=== PATIENT | male | born 1985 | race Caucasian/White ===

== ENCOUNTER 2016-10-27 17:34 | Emergency (ER) | payer BC, MEDICAID, OTHER ==
[~2016-10-27] VITALS: Ht 172.7 cm; Wt 95.0 kg
--- NOTE | 2016-10-27 17:41 | ERA ---
ER Documentation Chief Complaint Date/Time DATE: 10/27/16 TIME: 17:41 Chief Complaint testicular pain HPI The patient is a 31-year-old male, presenting to the ER because of bilateral testicular pain. He complains of left testicular pain and swollen for 2 days. He had similar symptoms 5 months ago and was treated with antibiotic for epididymitis. He had recurrent symptoms for 2 days. He complained of right testicular pain at 8:00 this morning. The pain is 8/10, worse with movement he denies fever, chills, neck pain, chest pain, dyspnea, abdominal pain, vomiting. He complains of dysuria, denies diarrhea, constipation. He smokes and drinks socially Past medical history: None Past surgical history: Appendectomy ROS All systems reviewed and are negative except as per history of present illness. Medications Home Meds Active Scripts Hydrocodone/Acetaminophen ([place] 5-325 Tablet) 1 Each Tablet, 1 TAB PO Q6H Y for PAIN, #15 TAB Prov:COLE DIAZ MD 10/27/16 Ciprofloxacin Hcl* (Ciprofloxacin Hcl*) 500 Mg Tablet, 500 MG PO BID for 10 Days , TAB Prov:COLE DIAZ MD 10/27/16 Allergies Allergies: Coded Allergies: No Known Allergy (Unverified , 10/27/16) Physical Exam Vitals Vital Signs Date Time Temp Pulse Resp B/P Pulse Ox O2 Delivery O2 Flow Rate FiO2 10/27/16 18:02 97.2 105 18 140/83 98 Physical Exam Const: No acute distress. Head: Atraumatic. Eyes: Normal Conjunctiva. ENT: Normal External Ears, Nose and Mouth. Neck: Full range of motion. No meningismus. Resp: Clear to auscultation bilaterally. Cardio: Regular rate and rhythm, no murmurs. Abd: Soft, non distended, normal bowel sounds, non tender. Skin: No petechiae or rashes. Back: No midline or flank tenderness. Ext: No cyanosis, or edema. Neur: Awake and alert. No focal deficit Psych: Normal Mood and Affect. Genitourinary: Bilateral testicular edematous and tender, more the right than the left. Uncircumcised male. No inguinal lymphadenopathy Results 24 hrs Laboratory Tests Test 10/27/16 19:17 Bedside Urine Blood 2+ Bedside Urine Glucose (UA) Negative Bedside Urine Ketones (LAB) Negative Bedside Urine Leukocyte Esterase (L 2+ Bedside Urine Nitrite (LAB) Negative Bedside Urine Protein (LAB) 2+ Bedside Urine pH (LAB) 7.0 Current Medications Medications (Trade) Dose Ordered Sig/Kindra Route PRN Reason Start Time Stop Time Status Last Admin Dose Admin Morphine Sulfate (morphine) 4 mg ONCE STAT IV 10/27/16 18:04 10/27/16 18:07 DC 10/27/16 18:12 Ondansetron HCl (Zofran Inj) 4 mg ONCE STAT IV 10/27/16 18:04 10/27/16 18:07 DC 10/27/16 18:12 Procedures/[place] [id number] Radiology Main Line: [phone] DIAGNOSTIC IMAGING REPORT Patient: FAWAD ROONEY : 1985 Age: 31 Sex: M MR #: [id number] DOS: 10/27/16 0000 Ordering MD: COLE DIAZ MD Location: E/R Room/Bed: PROCEDURE: Scrotal ultrasound CLINICAL INDICATION: Scrotal pain. TECHNIQUE: Scrotal ultrasound was performed with sagittal and transverse views. Pardo scale and color imaging was performed. Images were reviewed on high resolution PACS monitors. COMPARISON: None available FINDINGS: The right testicle measures 4.6 x 2.5 x 5 cm . There is normal size and echogenicity and morphology of the right testicle with normal blood flow. The right epididymis is normal. No hydrocele is seen. There is a small varicocele. The left testicle measures 4.2 x 2.6 x 3.9 cm. There is normal size and echogenicity and morphology of the left testicle with normal blood flow. The left epididymis is normal. There is a small hydrocele is seen. There is no evidence for a varicocele.. IMPRESSION: 1. Normal examination of the testicles and epididymi. 2. Right varicocele. 3. Small left hydrocele. RPTAT: HMVK .Cole Doll MD, Date Time Electronically viewed and signed by .Cole Doll MD, on 10/27/2016 18:53 .K/ CC: COLE DIAZ MD MEDICAL MAKING DECISION: The patient is a 31-year-old male, presenting with acute cystitis, acute right varicocele, acute left hydrocele. He was treated with morphine 4 mg IV for pain, Zofran 4 mg IV for nausea with good response. The differential diagnoses considered include but are not limited to epididymitis, testicular torsion, pyelonephritis Departure Diagnosis: Primary Impression: UTI (urinary tract infection) Additional Impressions: Hydrocele Varicocele Condition: Good Comments He was discharged with Cipro and [place] and referred to on-call urologist Dr. Rowland in 1-2 days, sooner if needed and return if any concern COLE DIAZ MD Oct 27, 2016 17:41
[2016-10-27 18:02] VITALS: Ht 172.7 cm; Wt 95.0 kg
[2016-10-27] MEDS ORDERED: ONDANSETRON 4 MG INJ IV STA (18:04)
[2016-10-27] MEDS ORDERED: morphine 4 MG/ML VIAL IV STA (18:04)
--- NOTE | 2016-10-27 18:53 | RADRPT ---
PROCEDURE: Scrotal ultrasound CLINICAL INDICATION: Scrotal pain. TECHNIQUE: Scrotal ultrasound was performed with sagittal and transverse views. Pardo scale and co allan imaging was performed. Images were reviewed on high resolution PACS monitors. COMPARISON: None available FINDINGS: The right testicle measures 4.6 x 2.5 x 5 cm . There is normal size and echogenicity and morphology of the right testicle with normal blood flow. The right epididymis is normal. No hydrocele is seen. There is a small varicocele. The left testicle measures 4.2 x 2.6 x 3.9 cm. There is normal size and echogenicity and morphology of the left testicle with normal blood flow. The left epididymis is normal. There is a small hydroc mainor is seen. There is no evidence for a varicocele.. IMPRESSION: 1. Normal examination of the testicles and epididymi. 2. Right varicocele. 3. Small left hydrocele. RPTAT: HMVK .Cole Doll MD, Date Time Electronically viewed and signed by .Cole Doll MD, MD on 10/27/2016 18:53 .K/
[2016-10-27 19:18] LABS: URINE BLOOD (Dip) POC 2+ (NEGATIVE)
[2016-10-27] MEDS ORDERED: HYDR-906 PO (19:33)
[2016-10-27] MEDS ORDERED: CIPR500T4 PO (19:33)
[2016-10-27 20:01] VITALS: BP 137/77; PULSE 92; RESP 18; TEMP 98.1
== END 2016-10-27 20:03 | disposition home or self-care (01) ==
LOC: E/R 17:34
DX: N39.0 Urinary tract infection, site not specified (principal); N43.3 Hydrocele, unspecified; I86.1 Scrotal varices; N50.811 Right testicular pain
CPT/HCPCS: 76870; 81003; 96374; 96375; J2270; J2405; Z7502

== ENCOUNTER 2016-10-31 02:39 | Emergency (ER) | payer MEDICAID ==
[~2016-10-31] VITALS: Ht 172.7 cm; Wt 100.0 kg
[~2016-10-31 02:39] MED LIST: CIPR500T4 PO; HYDR-906 PO
[2016-10-31 02:47] VITALS: Ht 172.7 cm; Wt 100.0 kg
[2016-10-31] MEDS ORDERED: SOD CHLORIDE 0.9% 1,000 ML IV STA (03:14)
[2016-10-31] MEDS ORDERED: KETOROLAC 30 MG INJ IV STA (03:14)
--- NOTE | 2016-10-31 03:19 | ERD ---
ER Documentation Chief Complaint Date/Time DATE: 10/31/16 TIME: 03:17 Chief Complaint worsening genital pain HPI 28-year-old male presents to emergency department for complaint of right testicular redness and swelling worse in the last 2 days. Patient is complaining of dysuria, burning pain, 8/10 scale, accompanied with pus coming from the urine and hematuria. Patient was seen here in emergency department 2 days ago, was given ciprofloxacin, Robson for pain, had an ultrasound done, urine tests done, was told to acute cystitis. Patient continues to have pain and it has gotten worse. ROS All systems reviewed and are negative except as per history of present illness. Medications Home Meds Active Scripts Doxycycline Hyclate* (Doxycycline Hyclate*) 100 Mg Tablet.dr, 100 MG PO BID for 14 Days, TAB Prov:FAUZIA ROB NP 10/31/16 Phenazopyridine Hcl* (Pyridium*) 200 Mg Tab, 200 MG PO TID Y for URINARY PAIN, # 6 TAB Prov:FAUZIA ROB NP 10/31/16 Hydrocodone/Acetaminophen ([place]son 5-325 Tablet) 1 Each Tablet, 1 TAB PO Q6H Y for PAIN, #15 TAB Prov:ROGER DIAZ MD 10/27/16 Ciprofloxacin Hcl* (Ciprofloxacin Hcl*) 500 Mg Tablet, 500 MG PO BID for 10 Days , TAB Prov:ROGER DIAZ MD 10/27/16 Allergies Allergies: Coded Allergies: No Known Allergy (Unverified , 10/27/16) PMhx/Soc Medical and Surgical Hx: pt denies Medical Hx History of Surgery: Yes (appendectomy) Hx Alcohol Use: No Hx Substance Use: No Hx Tobacco Use: No FmHx Family History: No coronary disease, No diabetes, No other Physical Exam Vitals Vital Signs Date Time Temp Pulse Resp B/P Pulse Ox O2 Delivery O2 Flow Rate FiO2 10/31/16 03:27 98.5 18 159/97 99 10/31/16 02:47 98.5 103 18 159/97 99 Physical Exam GENERAL: The patient is well developed and appropriate for usual state of health, in no apparent distress. CHEST: Clear to auscultation bilaterally. There are no rales, wheezes or rhonchi. HEART: Regular rate and rhythm. No murmurs, clicks, rubs or gallops. No S3 or S4. ABDOMEN: Soft, nontender and nondistended. Good bowel sounds. No rebound or guarding. No gross peritonitis. No gross organomegaly or masses. No Olvera sign or McBurney point tenderness. BACK: No midline or flank tenderness. EXTREMITIES: Equal pulses bilaterally. There is no peripheral clubbing, cyanosis or edema. No focal swelling or erythema. Full range of motion. Grossly neurovascularly intact. NEURO: Alert and oriented. Cranial nerves 2-12 intact. Motor strength in all 4 extremities with 5/5 strength. Sensation grossly intact. Normal speech and gait. SKIN: There is no apparent rash or petechia. The skin is warm and dry. HEMATOLOGIC AND LYMPHATIC: There is no evidence of excessive bruising or lymphedema. No gross cervical, axillary, or inguinal lymphadenopathy. : Noted right scrotal area to be red and swollen, tender on palpation, enlarged. No visualized penile discharge. Left scrotum is normal. Result Diagram: 10/31/16 0324 10/31/16 0324 Results 24 hrs Laboratory Tests Test 10/31/16 03:24 10/31/16 03:27 Alanine Aminotransferase (ALT/SGPT) 133IU/L Albumin 4.3g/dl Albumin/Globulin Ratio 1.02 Alkaline Phosphatase 125IU/L Anion Gap 19 Aspartate Amino Transf (AST/SGOT) 67IU/L Basophils # 0.010^3/ul Basophils % 0.5% Blood Morphology Comment Blood Urea Nitrogen 17mg/dl Calcium Level 9.5mg/dl Carbon Dioxide Level 29mmol/L Chloride Level 101mmol/L Creatinine 0.80mg/dl Direct Bilirubin 0.00mg/dl Eosinophils # 0.310^3/ul Eosinophils % 3.4% Globulin 4.20g/dl Glucose Level 73mg/dl Hematocrit 43.6% Hemoglobin 14.8g/dl Indirect Bilirubin 0.1mg/dl Lactic Acid Level 1.3mmol/L Lipase 47U/L Lymphocytes # 2.610^3/ul Lymphocytes % 26.0% Mean Corpuscular Hemoglobin 30.1pg Mean Corpuscular Hemoglobin Concent 34.0g/dl Mean Corpuscular Volume 88.6fl Mean Platelet Volume 7.3fl Monocytes # 0.910^3/ul Monocytes % 8.6% Neutrophils # 6.210^3/ul Neutrophils % 61.5% Nucleated Red Blood Cells # 0.010^3/ul Nucleated Red Blood Cells % 0.0/100WBC Platelet Count 36817^3/UL Potassium Level 4.2mmol/L Red Blood Count 4.9210^6/ul Red Cell Distribution Width 13.0% Sodium Level 145mmol/L Total Bilirubin 0.1mg/dl Total Protein 8.5g/dl White Blood Count 10.110^3/ul Urine Bacteria FEW Urine Bilirubin NEGATIVE Urine Clarity HAZY Urine Color LT. YELLOW Urine Glucose NEGATIVE% Urine Hemoglobin 2+ Urine Ketones NEGATIVE Urine Leukocyte Esterase 2+ Urine Microscopic RBC 5-10/HPF Urine Microscopic WBC 25-50/HPF Urine Nitrite NEGATIVE Urine Specific [place] 1.020 Urine Squamous Epithelial Cells FEW Urine Total Protein NEGATIVE Urine Urobilinogen 0.2 E.U./dL Urine pH 7.0 Current Medications Medications (Trade) Dose Ordered Sig/Kindra Route PRN Reason Start Time Stop Time Status Last Admin Dose Admin Sodium Chloride (NS) 1,000 ml @ 1,000 mls/hr Q1H STAT IV 10/31/16 03:14 10/31/16 04:13 DC 10/31/16 03:46 Ketorolac Tromethamine 30 mg 30 mg ONCE STAT IV 10/31/16 03:14 10/31/16 03:17 DC 10/31/16 03:46 Ceftriaxone Sodium (Rocephin) 50 ml @ 100 mls/hr ONCE ONCE IVPB 10/31/16 04:30 10/31/16 04:59 Patient was given medication for pain here in emergency department, after treatment, patient verbalized feeling much better. Patient's pain is improved.Normal saline IV bolus was given here in emergency department for rehydration, patient tolerated IV fluids. PROCEDURE: Testicle ultrasound with power Doppler. CLINICAL INDICATION: Scrotal pain. TECHNIQUE: Multiple sonographic images of the scrotal region were obtained utilizing a linear array transducer with grayscale and color-flow and a Doppler imaging. The images were reviewed on a high-resolution PACS workstation. COMPARISON: 10/27/2016. FINDINGS: Bilateral testicles are normal in size, contour, echogenicity and echotexture. The right testicle measures 5.2 x 3.2 x 4.3 cm and the left testicle measures 5.1 x 2.9 x 3.4 cm. Testicle arterial and venous flow are normal. There is no evidence of testicular mass or torsion. There is no evidence of orchitis. Bilateral epididymi are normal in size, contour, position and echogenicity. The right epididymis measures 20.9 x 8.9 mm the left epididymis measures 16.1 x 11.1 mm. There is no evidence of epididymitis. There is mild right-sided hydrocele. There is no varicocele. Scrotal soft tissues are unremarkable. IMPRESSION: Mild right-sided hydrocele. Otherwise unremarkable testicular ultrasound. .Robbin Justin MD, Date Time Electronically viewed and signed by .Robbin Justin MD, MD on 10/31/2016 04:11 .T/ CC: FAUZIA ROB NP Procedures/MDM Medical decision making: Patient symptoms is likely consistent with epididymoorchitis, as per physical examination. Ultrasound does not show any scrotal abscess. Patient's urine shows leukocytes, urine GC chlamydia was sent, also urine culture was sent. As per discussion with my attending physician, Dr. Mejia, he recommended to give patient IV Rocephin here in emergency department, to send patient home with doxycycline for 14 days, patient was advised to stay but he is taking ciprofloxacin to cover Escherichia coli. No symptoms of any sepsis at this time, lactic acid is negative, no leukocytosis, patient does not have any fever at this time. Patient appears well and is hemodynamically stable. Patient will be also was given prescription for Pyridium to help with dysuria. Patient was advised to continue taking Robson for pain at home. Departure Diagnosis: Primary Impression: Epididymo-orchitis Condition: Stable Patient Instructions: Treating Epididymitis and Orchitis FAUZIA ROB NP Oct 31, 2016 03:19
[2016-10-31 03:42] LABS: BASOPHILS % 0.5 % (0.0-2.0); EOSINOPHILS # 0.3 10^3/ul (0.0-0.5); EOSINOPHILS % 3.4 % (0.0-7.0); HEMATOCRIT 43.6 % (42.0-52.0); HEMOGLOBIN 14.8 g/dl (14.0-18.0); LYMPHOCYTES # 2.6 10^3/ul (0.8-2.9); MEAN CORPUSCULAR HEMOGLOBIN 30.1 pg (29.0-33.0); MEAN CORPUSCULAR VOLUME 88.6 fl (82.0-101.0); MEAN PLATELET VOLUME 7.3 fl (7.4-10.4); MONOCYTE # 0.9 10^3/ul (0.3-0.9); MONOCYTES % 8.6 % (0.0-11.0); NEUTROPHIL # 6.2 10^3/ul (1.6-7.5); NEUTROPHILS % 61.5 % (39.0-77.0); PLATELET COUNT 343 10^3/UL (140-440); RED BLOOD COUNT 4.92 10^6/ul (4.70-6.10); UNCORRECTED WBC 10.1 10^3/ul (4.8-10.8); WHITE BLOOD COUNT 10.1 10^3/ul (4.8-10.8)
[2016-10-31 03:44] LABS: ADD UMIC YES; URINE BILIRUBIN (Dip) NEGATIVE (NEGATIVE); URINE BLOOD (Dip) 2+ (NEGATIVE); URINE COLOR LT. YELLOW (YELLOW); URINE GLUCOSE (Dip) NEGATIVE (NEGATIVE); URINE KETONES (Dip) NEGATIVE (NEGATIVE); URINE LEUKOCYTE ESTERASE (Dip) 2+ (NEGATIVE); URINE NITRITE (Dip) NEGATIVE (NEGATIVE); URINE TOTAL PROTEIN (Dip) NEGATIVE (NEGATIVE); URINE UROBILINOGEN (Dip) 0.2 E.U./dL (0.1-1.0)
[2016-10-31 03:46] LABS: CONDITION 1
[2016-10-31 03:58] LABS: SQUAMOUS EPITHELIAL CELL,UR FEW
[2016-10-31 03:59] LABS: BACTERIA,URINE FEW
[2016-10-31 04:00] LABS: ALBUMIN 4.3 g/dl (3.3-4.9); POTASSIUM 4.2 mmol/L (3.5-5.1)
[2016-10-31 04:02] LABS: BILIRUBIN,INDIRECT 0.1 mg/dl (0-1.1); BILIRUBIN,TOTAL 0.1 mg/dl (0.2-1.3); CREATININE 0.8 mg/dl (0.61-1.24)
[2016-10-31 04:03] LABS: ALBUMIN/GLOBULIN RATIO 1.02; CALCIUM 9.5 mg/dl (8.4-10.2); TOTAL PROTEIN 8.5 g/dl (6.1-8.1)
--- NOTE | 2016-10-31 04:11 | RADRPT ---
PROCEDURE: Testicle ultrasound with power Doppler. CLINICAL INDICATION: Scrotal pain. TECHNIQUE: Multiple sonographic images of the scrotal region were obtained utilizing a linear arra y transducer with grayscale and color-flow and a Doppler imaging. The images were reviewed on a high -resolution PACS workstation. COMPARISON: 10/27/2016. FINDINGS: Bilateral testicles are normal in size, contour, echogenicity and echotexture. The right testicle m easures 5.2 x 3.2 x 4.3 cm and the left testicle measures 5.1 x 2.9 x 3.4 cm. Testicle arterial and venous flow are normal. There is no evidence of testicular mass or torsion. There is no evidence of orchitis. Bilateral epididymi are normal in size, contour, position and echogenicity. The right epididymis me asures 20.9 x 8.9 mm the left epididymis measures 16.1 x 11.1 mm. There is no evidence of epididymit is. There is mild right-sided hydrocele. There is no varicocele. Scrotal soft tissues are unremar kable. IMPRESSION: Mild right-sided hydrocele. Otherwise unremarkable testicular ultrasound. .Robbin Justin MD, MD Date Time Electronically viewed and signed by .Robbin Justin MD, MD on 10/31/2016 04:11 .T/
[2016-10-31] MEDS ORDERED: DOXY100T20 PO (04:16)
[2016-10-31] MEDS ORDERED: PHEN-538 PO (04:16)
[2016-10-31] MEDS ORDERED: CEFTRIAXONE 1 GM/50 ML (PMX) 50 ML IVPB ONE (04:30)
[2016-10-31 05:27] VITALS: BP 112/64; PULSE 83; RESP 18; TEMP 97.7
== END 2016-10-31 05:31 | disposition home or self-care (01) ==
LOC: FTE 02:39
DX: N45.3 Epididymo-orchitis (principal)
CPT/HCPCS: 36415; 76870; 80053; 81001; 81003; 83605; 83690; 85025; 87086; 96361; 96365; 96375; J0696; J1885; J7030; Z7502

== ENCOUNTER 2018-02-08 00:43 | Emergency (ER) | END 2018-02-08 03:40 | disposition home or self-care (01) ==